=== PATIENT | male | born 1970 | race Two or more races ===

== ENCOUNTER → 2017-02-22 | Outpatient (CLI) | payer MEDICARE ==
[2017-02-22 17:15] LABS: BASOPHIL% 0.6 % (0-2.5); EOSINOPHIL# 0.1 X10e3 (0-0.7); EOSINOPHIL% 1.3 % (0.0-7.0); HEMATOCRIT 46.7 % (38.0-50.0); HEMOGLOBIN 15.6 gm/dL (13.0-16.0); LYMPHOCYTE# 2.2 X10e3 (1.0-3.5); LYMPHOCYTE% 27.1 % (17.0-45.0); MEAN CELL VOLUME 86.2 FL (83-96); MEAN CORPUSCULAR HEMOGLOBIN 28.7 PG (28-34); MEAN CORPUSCULAR HGB CONC 33.3 g/dL (30-36); MEAN PLATELET VOLUME 6.9 FL (6.5-11.5); MONOCYTE# 0.4 X10e3 (0-1.0); MONOCYTE% 4.5 % (3.0-12.0); NEUTROPHIL# 5.4 X10e3 (1.5-7.1); NEUTROPHIL% 66.5 % (40-75); PLATELET COUNT 220 X10e3 (140-420); RED BLOOD COUNT 5.42 X10e (3.90-5.60); RED CELL DISTRIBUTION WIDTH 13.6 % (11.0-15.5); WHITE BLOOD COUNT 8.1 X10e3 (4.0-10.5)
[2017-02-22 17:19] LABS: DIFF IND NO
[2017-02-22 17:26] LABS: INR 1.8; PROTHROMBIN TIME (PATIENT) 19.8 SECONDS (9.6-11.5)
[2017-02-22 18:01] LABS: CALCIUM SERUM 9.1 mg/dL (8.4-10.2); GLOM FILT RATE Estimated 91.1 mL/min (>60); POTASSIUM 4.6 mmol/L (3.5-5.1)
[2017-02-22 18:07] LABS: THYROID STIMULATING HORMONE 1.18 uIU/ml (0.34-5.60)
[2017-02-22 18:11] LABS: FREE T3 4.1 pg/mL (2.5-3.9)
[2017-02-22 18:13] LABS: FREE THYROXIN (T4) 1.12 ng/dL (0.58-1.64)
== END | disposition home or self-care (01) ==
LOC: CLAB 16:40
PROVIDERS: Internal Medicine Interventional Cardiology
DX: I42.9 Cardiomyopathy, unspecified (principal)
CPT/HCPCS: 36415; 80048; 80061; 84439; 84443; 84481; 85025; 85610